=== PATIENT | female | born 1935 | race Caucasian/White ===

== ENCOUNTER → 2018-10-13 | Day surgery (SDC) | payer OTHER, MEDICARE ==
--- NOTE | 2018-10-16 11:14 | PATH ---
Surgical Pathology Report Patient Name: AFTAB ALATORRE [facility]. Rec. #: [id number] /Age/Gender: 1935 (Age: 83) / F Account: [id number] Location: MAMMOGRAPHY Taken: 10/13/2018 Received: 10/14/2018 Reported: 10/16/2018 Physicians: Aleksandra Loyd MD Specimen(s) Received RIGHT BREAST MASS CORE BX Clinical History Palpable mass Mammographic & ultrasound findings: Highly suspicious/malignant 3.8 x 2 cm mass Final Diagnosis BREAST, RIGHT, MASS, US-GUIDED CORE BIOPSY: INVASIVE DUCTAL CARCINOMA, MODERATELY DIFFERENTIATED, MEASURING 1.4 CM IN GREATEST DIMENSION IN THIS MATERIAL. Note: Results of ER, MA, Her2 & Ki67 studies will be reported separately in an addendum. Case discussed with Dr. Alia Downey on 10/16/18. Electronically Signed Asiya Hughes M.D. Addendum Reported: 10/22/2018 Addendum Diagnosis Results of ER, MA, Her2 (IHC) & Ki-67 studies performed at [place], [place] ([id number]) are as follows: ER (clone [id number] mouse monoclonal antibody by [employer]): > 95% % nuclear staining with strong intensity (positive). MA (clone16 mouse monoclonal antibody by [employer]): ~70 % nuclear staining with strong intensity (positive). Her2 IHC (EP3 from [employer], formerly known as [id number], using Arroyo Polymer Refine detection kit):1+ (negative). Ki-67:~10% (low proliferative index). Positive and negative controls (internal if applicable) show appropriate results. Formalin fixation and cold ischemic times are within current ASCO/CAP recommendations for ER, MA and Her2 testing. Asiya Hughes M.D. Gross Description Received in formalin, labeled "right breast mass core biopsy" are three cores of nicloe tissue, ranging from 1.2-1.5 cm in length with a diameter of up to 0.2 cm. Entirely submitted in two cassettes. Time to formalin fixation: < 1 minute. Total formalin fixation time: Approximately 7 hours AE/10/15/2018 ebram/10/15/2018
== END | disposition home or self-care (01) ==
LOC: JRADUS-SUR 09:16 → JMAMMO 09:16 → EDSTATUS 10:00
PROVIDERS: ATTEND Family Medicine
PROC: 0HBT3ZX Excision of Right Breast, Percutaneous Approach, Diagnostic (ICD-10-PCS; principal; 2018-10-13)
DX: C50.911 Malignant neoplasm of unspecified site of right female breast (principal)
CPT/HCPCS: 19083; 76641-TC-50; 77066-TC; 87899; 88305-TC; A4648; G0279-TC

== ENCOUNTER 2018-11-11 09:25 | Inpatient (IN) | payer OTHER, MEDICARE ==
--- NOTE | 2018-11-05 14:36 | HP ---
Admitting History and Physical - Primary Care Physician PCP: Nesha Chambers - Admission Chief Complaint: Right breast cancer History of Present Illness: 83 year old nulliparous female with family H/O breast cancer after going to a rehab facility for fractured pelvis was noted to have a right breast mass. Mammogram revealed 2.2 cm irregular mass in the periareolar region 3to 4:00. US confirmed 3.8 cm suspicious mass birad 4. Right US core bx revealed invasive ductal carcinoma. Workup did not reveal metastatic dz. History Source: Patient Limitations to Obtaining History: No Limitations - Past Medical History Additional Past Medical History: recovering alcoholic - Past Surgical History Past Surgical History: Yes: Tonsillectomy Additional Past Surgical History: FX pelvis 2019 fx upper extremity 1950 right TKR 2017 - Smoking History Smoking history: Former smoker Have you smoked in the past 12 months: No - Alcohol/Substance Use Hx Alcohol Use: No (recovering ETOH) Home Medications - Allergies Allergies/Adverse Reactions: Allergies Allergy/AdvReac Type Severity Reaction Status Date / Time No Known Allergies Allergy Verified 11/05/18 14:38 - Home Medications Home Medications (free text): Vitamin C Family Disease History - Family Disease History Other Family History: mat aunt breast ca Physical Examination Breast(s): Yes: Other (obvious deformity with inferior pole nipple and skin retraction. Underneath is a mobile 4x2 cm firm irregular mass .) Problem List - Problems (1) Breast cancer, right breast Code(s): C50.911 - MALIGNANT NEOPLASM OF UNSP SITE OF RIGHT FEMALE BREAST Qualifiers: Breast location: central portion of breast Estrogen receptor status: positive Patient sex: female Qualified Code(s): C50.111 - Malignant neoplasm of central portion of right female breast; Z17.0 - Estrogen receptor positive status [ER+] Assessment/Plan Right total mastectomy ,sentenel node biopsy ,blue dye only, possible axillary node dissection
[2018-11-06 09:47] VITALS: BMI 18.3
[2018-11-11] MEDS ORDERED: PROPOFOL 20 ML ONE (11:01)
[2018-11-11] MEDS ORDERED: LIDOCAINE HCL 2% JELLY (5 ML/TUBE) ONE (11:30)
[2018-11-11] MEDS ORDERED: DEXAMETHASONE SOD PHOSPHATE 4 MG/1 ML VIAL ONE (11:30)
[2018-11-11] MEDS ORDERED: KETOROLAC TROMETHAMINE 30 MG/1 ML VIAL ONE (11:30)
[2018-11-11] MEDS ORDERED: ONDANSETRON 4 MG/2 ML VIAL ONE (11:30)
[2018-11-11] MEDS ORDERED: LIDOCAINE HCL/PF 2% SDV 5ML VIAL ONE (11:30)
[2018-11-11] MEDS ORDERED: ceFAZolin SODIUM 1 GM VIAL ONE (11:30)
[2018-11-11] MEDS ORDERED: ePHEDrine SULFATE 50 MG/1 ML AMPULE ONE (11:34)
[2018-11-11] MEDS ORDERED: ISOSULFAN BLUE 10 MG/ML VIAL SQ ONE (11:35)
[2018-11-11] MEDS ORDERED: BUPIVACAINE HCL 0.25% 125 MG/50 ML VIAL ONE (13:01)
[2018-11-11] MEDS ORDERED: BUPIVACAINE HCL/PF 0.25% (2.5MG/ML) 10 ML VIAL IJ ONE (13:05)
[2018-11-11] MEDS ORDERED: ONDANSETRON 4 MG/2 ML VIAL IVPUSH PRN ×2 (13:23→13:30)
[2018-11-11] MEDS ORDERED: ACETAMINOPHEN 325 MG TABLET (FP) PO PRN (13:23)
[2018-11-11] MEDS ORDERED: ZOLPIDEM TARTRATE 5 MG TABLET PO PRN (13:23)
[2018-11-11] MEDS ORDERED: DOCUSATE SODIUM 100 MG CAPSULE (FP) PO PRN (13:26)
[2018-11-11] MEDS ORDERED: oxyCODONE HCL 5 MG TABLET PO PRN ×3 (13:26→13:30)
[2018-11-11] MEDS ORDERED: PROMETHAZINE HCL 25 MG/1 ML VIAL IVPUSH PRN (13:30)
[2018-11-11] MEDS: DEXTROSE 5%-0.45% SALINE 1,000 ML IV SCH (14:45)
[2018-11-11] MEDS: CEFAZOLIN 1 GM/D5W 1 GRAM/50 ML BAG IVPB SCH ×2 (15:00→20:48)
--- NOTE | 2018-11-11 18:47 | OP ---
DATE OF OPERATION: 11/11/2018 PREOPERATIVE DIAGNOSIS: Right breast cancer. POSTOPERATIVE DIAGNOSIS: Right breast cancer. PROCEDURE: Right total mastectomy with right axillary sentinel node biopsy. ANESTHESIA: General, intubated. ATTENDING SURGEON: Allegra Chambers MD SMOCKER: ADRIENNE Yanes ESTIMATED BLOOD LOSS: Minimal. COMPLICATIONS: None. PROCEDURE: The patient was made aware of the risks and benefits of the procedure and consented. The patient was placed in the supine position on the operating room table, and after general anesthesia was induced, the patient was intubated. The operative site was prepped and draped in the usual sterile fashion. Then 2.5 mL of 1% isosulfan blue were locally infiltrated into the peritumoral tissues, waiting approximately 10 minutes, with gentle manual compression, a curvilinear incision was made in the low axilla. Using blunt and sharp dissection, tissues were dissected down. A cluster of blue lymph nodes were identified and surgically excised and submitted for frozen section. Interrogation of the rest of the axilla showed no other blue lymph nodes and nothing palpable. Frozen section was reported as no evidence of metastasis. An elliptical incision using the prior incision was used around the nipple and tumor using electrocautery skin flaps were made superior to the clavicle, medial to the sternum, laterally to latissimus dorsi, and inferior to inframammary fold. Using electrocautery, the breast tissue was taken off the pectoralis muscle, extending laterally to latissimus dorsi. The breast was then submitted with a short suture superior, long suture lateral, for permanent sectioning. The wound was copiously irrigated with normal saline. Hemostasis maintained by electrocautery. Through an inferior stab wound, a drain was placed and sutured to the skin with 2-0 silk. The skin was then closed with interrupted 2-0 Vicryl followed by interrupted 3-0 Vicryl, followed by a running subcuticular 4-0 Monocryl. Steri-Strips, sterile dressing, and a compression bra were then applied and the patient, having tolerated the procedure well, was transferred to the recovery room in excellent condition. ALLEGRA CHAMBERS M.D. [id number]
[2018-11-12] MEDS: CEFAZOLIN 1 GM/D5W 1 GRAM/50 ML BAG IVPB SCH ×3 (02:08→15:56)
[2018-11-12] MEDS ORDERED: HEPARIN NA (PORCINE) 5,000 UNITS/ML 1ML VIAL SQ SCH (08:00)
[2018-11-12 08:06] LABS: HEMATOCRIT 33.4 % (32.4-45.2); HEMOGLOBIN 11.4 GM/dl (10.7-15.3); MCH 30.7 pg (25.7-33.7); MCHC 33.9 g/dl (32.0-36.0); MEAN CELL VOLUME 90.3 fl (80-96); PLATELET COUNT 206 K/MM3 (134-434); RDW 13.7 % (11.6-15.6); WHITE BLOOD COUNT 8.9 K/mm3 (4.0-10.8)
--- NOTE | 2018-11-12 09:13 | PN ---
Progress Note, Physician Chief Complaint: S/P right mastectomy with snbx POD#1 History of Present Illness: Patient was seen today at the bedside in a sitting position. She tolerated breakfast without nausea. She denies pain, SOB or tachycardia. - Current Medication List Current Medications: Active Medications Acetaminophen (Tylenol -) 650 mg PO Q4H PRN PRN Reason: FEVER Docusate Sodium (Colace -) 100 mg PO BID PRN PRN Reason: CONSTIPATION Heparin Sodium (Porcine) (Heparin -) 5,000 unit SQ BID@0800,2000 [facility] Last Admin: 11/12/18 08:11 Dose: 5,000 unit Cefazolin Sodium (Ancef 1 Gm Premixed Ivpb -) 1 gram in 50 mls @ 100 mls/hr IVPB Q6H-IV [facility] Stop: 11/18/18 14:59 Last Admin: 11/12/18 08:11 Dose: 100 mls/hr Dextrose/Sodium Chloride (D5-1/2ns -) 1,000 mls @ 100 mls/hr IV ASDIR [facility] Last Admin: 11/11/18 14:45 Dose: 0 mls Ondansetron HCl (Zofran Injection) 4 mg IVPUSH Q6H PRN PRN Reason: NAUSEA AND/OR VOMITING Oxycodone HCl (Roxicodone -) 5 mg PO Q6H PRN PRN Reason: PAIN LEVEL 6-10 Zolpidem Tartrate (Ambien -) 5 mg PO HS PRN PRN Reason: Insomnia - Objective Vital Signs: Vital Signs Temperature 98.5 F 11/12/18 05:00 Pulse Rate 76 11/12/18 05:00 Respiratory Rate 19 11/12/18 05:00 Blood Pressure 120/56 L 11/12/18 05:00 O2 Sat by Pulse Oximetry (%) 96 11/12/18 05:00 Constitutional: Yes: Well Nourished, Calm Breast(s): Yes: Other (The right chest was noted to be swollen and ecchymotic. The MICAH was noted to not be on bulb suction. After weaning and placing on bulb suction, approximately 100 cc of bloody fluid was noted in the bulb. The swelling went down as well.) Labs: CBC, BMP 11/12/18 07:25 Problem List - Problems (1) Breast cancer, right breast Code(s): C50.911 - MALIGNANT NEOPLASM OF UNSP SITE OF RIGHT FEMALE BREAST Qualifiers: Breast location: central portion of breast Estrogen receptor status: positive Patient sex: female Qualified Code(s): C50.111 - Malignant neoplasm of central portion of right female breast; Z17.0 - Estrogen receptor positive status [ER+] Assessment/Plan A: S/P right mastectomy POD#1 VSS P: Monitor vitals Monitor MICAH output instructional services specialist to see patient for VNS at home Continue current tx regime.
[2018-11-12] MEDS: DEXTROSE 5%-0.45% SALINE 1,000 ML IV SCH (14:56)
--- NOTE | 2018-11-12 14:59 | PN ---
Progress Note (short form) - Note Progress Note: ANESTHESIA POSTOP 83 YO FEMALE POD#1, S/P R MASTECTOMY, GA Patient sitting in chair. No complaints. Tolerating PO. Adequate pain control VSS, Afebrile Continue current care, encouraged IS and ambulation as tolerated. No anesthetic complications
[2018-11-12 17:43] VITALS: BP 130/58; PULSE 86; TEMP 98.2
--- NOTE | 2018-11-13 16:40 | PATH ---
Surgical Pathology Report Patient Name: AFTAB ALATORRE [facility]. Rec. #: [id number] /Age/Gender: 1935 (Age: 83) / F Account: [id number] Location: [facility] Taken: 11/11/2018 Received: 11/11/2018 Reported: 11/13/2018 Physicians: Nesha Chambers M.D. Specimen(s) Received A: RIGHT AXILLARY SENTINEL LYMPH NODES (FS) B: RIGHT BREAST MASTECTOMY Clinical History Mastectomy: Invasive carcinoma, tumor/biopsy site at 5-6:00 Final Diagnosis A. LYMPH NODES, RIGHT AXILLARY SENTINEL, EXCISION (FS): FOUR LYMPH NODES, NEGATIVE FOR METASTATIC CARCINOMA (0/4). B. BREAST, RIGHT, TOTAL MASTECTOMY: INVASIVE DUCTAL CARCINOMA, POORLY DIFFERENTIATED (TUBULE SCORE: 3/3, NUCLEAR GRADE: 3/3, MITOTIC SCORE: 2/3, TOTAL SCORE: 8/9; DULCE GRADE 3). INVASIVE CARCINOMA MEASURES 2.1 CM IN GREATEST DIMENSION, MICROSCOPICALLY. DUCTAL CARCINOMA IN SITU (DCIS), SOLID AND CRIBRIFORM TYPE, INTERMEDIATE NUCLEAR GRADE IS PRESENT ADMIXED WITH INVASIVE CARCINOMA. SURGICAL MARGINS ARE UNINVOLVED BY CARCINOMA; INVASIVE CARCINOMA IS AT 4 MM FROM THE CLOSEST (ANTERIOR) MARGIN AND DCIS IS AT 8 MM FROM THE CLOSEST (ANTERIOR) MARGIN. NIPPLE AND SKIN ARE UNINVOLVED BY INVASIVE CARCINOMA; DCIS INVOLVES LARGE LACTIFEROUS DUCT OF NIPPLE. NO LYMPHOVASCULAR INVASION IS IDENTIFIED. PATHOLOGIC STAGE (pTNM): pT2 pN0. SEE ALSO INVASIVE CARCINOMA CASE SUMMARY BELOW. Comments Breast Invasive Carcinoma: Surgical Pathology Case Summary (Based on AJCC TNM 8 th edition) Procedure _X_ Total mastectomy Specimen Laterality _X_ Right Tumor Size 21 mm Histologic Type _X_ Invasive carcinoma of no special type (ductal, not otherwise specified) Histologic Grade (Dulce Histologic Score) Glandular (Acinar)/Tubular Differentiation _X_ Score 3 (<10% of tumor area forming glandular/tubular structures) Nuclear Pleomorphism _X_ Score 3 Mitotic Rate _X_ Score 2 Overall Grade _X_ Grade 3 (scores of 8 or 9) Tumor Focality _X_ Single focus of invasive carcinoma Ductal Carcinoma In Situ (DCIS) _X_ DCIS is present in specimen _X_ Negative for extensive intraductal component (EIC) Margins Invasive Carcinoma Margins _X_ Uninvolved by invasive carcinoma Distance from closest margin (millimeters): 4 mm Closest margin: anterior DCIS Margins _X_ Uninvolved by DCIS Distance from closest margin (millimeters): 8 mm Closest margin: anterior Regional Lymph Nodes _X_ Uninvolved by tumor cells Number of Lymph Nodes Examined: 4 Number of [place] Nodes Examined: 4 Treatment Effect _X_ No known presurgical therapy Lymphovascular Invasion _X_ Not identified Pathologic Stage Classification (pTNM, AJCC 8th Edition) Primary Tumor (Invasive Carcinoma) (pT) _X_ pT2: Tumor >20 mm but =50 mm in greatest dimension Regional Lymph Nodes (pN) Category (pN) _X_ pN0: No regional lymph node metastasis identified or ITCs only Biomarker Studies Results of ER, ND, Her2 (IHC) & Ki-67 studies performed on prior biopsy ([id number]) at [place], [place] ([id number]) are as follows: ER (clone 6F11 mouse monoclonal antibody by [employer]) : >95 % nuclear staining with strong intensity (positive/). ND (clone16 mouse monoclonal antibody by [employer]) : ~70 % nuclear staining with strong intensity (positive). Her2 IHC (EP3 from [employer], formerly known as [id number], using Arroyo Polymer Refine detection kit): 1+ (negative). ki67: ~10% (low proliferative index). (see note) Note: Ki67 studies are being repeated on the current specimen, in view of higher histologic grade. Electronically Signed Asiya Hughes M.D. Gross Description A. Received fresh for frozen section evaluation, labeled "right axillary sentinel lymph nodes" are four lymph nodes, ranging from 0.4-0.8 cm in greatest dimension, with attached adipose tissue. Frozen section is performed on the lymph nodes. The frozen section residue is entirely submitted into cassettes as follows: FSA1: two whole lymph nodes; FSA2: two whole lymph nodes. B. Received in formalin, labeled "right breast, mastectomy" is a 19.5 x 18.5 x 4.0 cm right mastectomy specimen, surmounted anteriorly by a 10.8 x 5.2 cm ellipse of light nicole skin with nipple having a diameter 1.2 cm. A long suture elias the lateral margin and a short suture indicates the superior margin, per the surgeon. The anterior margin is inked blue and the deep margin is inked black. Sectioning reveals a 2.4 x 2.2 x 2.0 cm firm to hard nicole mass in the lower inner quadrant (LIQ). The mass abuts skin and is at 0.4 cm from the anterior margin and at 1.2 cm from the deep margin. The remainder of the breast tissue is comprised predominantly of adipose tissue. [employer] Appliance [employer]er sections are submitted in nine cassettes as follows: 1, 2-nipple; 3-full-face section of mass in LIQ with anterior margin; 4-additional mass with anterior margin; 5-mass with skin; 6-mass with deep margin; 7-upper inner quadrant (UIQ); 8-, upper outer quadrant (UOQ); 9-lower outer quadrant (LOQ). Time to formalin fixation: 14 minutes Total formalin fixation time: Approximately 31 hours
== END 2018-11-12 19:05 | disposition home health service (06) | DRG 581 ==
LOC: FM/S 09:25
PROVIDERS: ADMIT Surgery Surgical Oncology; ATTEND Surgery Surgical Oncology
PROC: 0HTT0ZZ Resection of Right Breast, Open Approach (ICD-10-PCS; principal; 2018-11-11 11:45)
PROC: 07B50ZX Excision of Right Axillary Lymphatic, Open Approach, Diagnostic (ICD-10-PCS; 2018-11-11 11:45)
DX: C50.111 Malignant neoplasm of central portion of right female breast (principal)
CPT/HCPCS: 36415; 85027; 88307-TC; 88331-TC; 88332; 94760; J1644